=== PATIENT | male | born 1970 | race Caucasian/White ===

== ENCOUNTER 2020-11-29 12:48 | Emergency (ER) | payer MEDICAID ==
[~2020-11-29] VITALS: Ht 188 cm; Wt 98.0 kg
[2020-11-29 12:58] VITALS: BP 110/77
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
[2020-11-29] MEDS ORDERED: OLANZAPINE 10 MG TABLET ONE (13:52)
--- NOTE | 2020-11-29 13:56 | NUR ---
BAL 0.00. PT MEDICATED PER EMAR. SITTING UP IN BED RESTING. STATES " i WANT TO GET CLEAN AND GET HELP, HERBERTH BEEN ON METH FAR TOO LONG" PT DENIES HI/SI
[2020-11-29] MEDS ORDERED: OLANZAPINE 10 MG TABLET PO SCH (14:00)
== END 2020-11-29 14:33 | disposition home or self-care (01) ==
LOC: ED 14:12
DX: F15.150 Other stimulant abuse with stimulant-induced psychotic disorder with delusions (principal); R45.851 Suicidal ideations; F22 Delusional disorders; R00.0 Tachycardia, unspecified
CPT/HCPCS: 99283

== ENCOUNTER 2020-12-03 14:58 | Emergency (ER) | payer MEDICAID ==
[~2020-12-03] VITALS: Ht 188 cm; Wt 101.0 kg
[2020-12-03 15:01] VITALS: BP 144/81
--- NOTE | 2020-12-03 15:15 | NUR ---
BELONGINGS SECURED IN LOCKER AND ROOM EQUIPMENT BEHIND PULL DOWN DOORS. IN DIRECT VIEW OF SITTER.
[2020-12-03 15:56] LABS: ALBUMIN 3.6 g/dL (3.4-5.0); ANION GAP 7 mmol/L (5-15); CALCIUM 8.6 mg/dL (8.5-10.1); CHLORIDE 113 mmol/L (98-107)
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
[2020-12-03 15:59] LABS: AMPHETAMINE SCREEN, URINE Negative (Negative); BARBITURATE SCREEN, URINE Negative (Negative); BENZODIAZEPINE SCREEN, URINE Negative (Negative); CANNABINOID SCREEN, URINE Negative (Negative); COCAINE SCREEN, URINE Negative (Negative); METHADONE SCREEN, URINE Negative (Negative); OPIATE SCREEN, URINE Negative (Negative)
[2020-12-03 16:01] LABS: SALICYLATE LEVEL 1.9 mg/dL (2.8-20.0)
[2020-12-03 16:09] LABS: BASOPHILS % (AUTO) 1 % (0-1); EOSINOPHILS % (AUTO) 4 % (1-7); LYMPHOCYTES % (AUTO) 22 % (22-44); MEAN CORPUSCULAR HEMOGLOBIN 29.5 pg (27.5-34.5); MEAN CORPUSCULAR HGB CONC 35.1 g/dL (33.2-36.2); MEAN PLATELET VOLUME 7.8 fL (7.4-10.4); MONOCYTES % (AUTO) 6 % (2-9); NEUTROPHILS % (AUTO) 67 % (42-75); PLATELET COUNT 216 x10^3/uL (130-400); RED BLOOD COUNT 5.49 x10^6/uL (4.38-5.82); RED CELL DISTRIBUTION WIDTH 13.8 % (9.4-14.8)
[2020-12-03] MEDS ORDERED: QUETIAPINE 25MG TABLET PO ONE (16:30)
[2020-12-03] MEDS ORDERED: QUETIAPINE 25MG TABLET ONE (16:40)
--- NOTE | 2020-12-03 16:58 | NUR ---
TRE COONEY COMPLETED. PT MEDICATED PER ORDERS. PROVIDED FOOD. COOPERATIVE, NO DISTRESS
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
--- NOTE | 2020-12-03 19:00 | NUR ---
introduced myself to pt, and pt is angry and states he hasn't gotten anything from day staff. pt complaining of pain to feet and was offered tylenol but pt is angry and refused medicine. pt offered medicine if he changes his mind.
--- NOTE | 2020-12-03 19:04 | NUR ---
REPORT TO LENIN ENRIQUEZ
[2020-12-03] MEDS ORDERED: ACETAMINOPHEN 500 MG TABLET ONE (19:22)
[2020-12-03] MEDS ORDERED: ACETAMINOPHEN 500 MG TABLET PO ONE (19:30)
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
--- NOTE | 2020-12-03 21:25 | NUR ---
REPORT CALLED TO [facility], [place] [employer] EVALUATOR. PT BEING TRANSPORTED TO FLOOR WITHOUT INCIDENT. PT CALM AND COOPERATIVE AND PLEASANT WITH THE STAFF.
== END 2020-12-03 21:34 | disposition other institution (70) ==
LOC: ED 16:19
DX: R45.851 Suicidal ideations (principal); F23 Brief psychotic disorder; Z20.822 Contact with and (suspected) exposure to COVID-19
CPT/HCPCS: 36415; 80048; 80299; 80307; 80320; 80329; 82040; 85025; 87635; 99284; G0480